=== PATIENT | male | born 1945 | race Caucasian/White ===

== ENCOUNTER 2020-12-20 18:42 | Emergency (ER) | payer OTHER ==
[2020-12-20] MEDS ORDERED: Lidocaine 1% 10 ML MDV INJECT ONE (20:03)
[2020-12-20] MEDS ORDERED: Acetaminophen 325 MG Tab PO ONE (20:03)
--- NOTE | 2020-12-20 20:09 | EDM.PDOC ---
ED HPI GENERAL MEDICAL PROBLEM - General Chief Complaint: General Stated Complaint: FISH HOOK IN FINGER Time Seen by Provider: 12/20/20 19:59 Source of Information: Reports: Patient, RN Notes Reviewed - History of Present Illness INITIAL COMMENTS - FREE TEXT/NARRATIVE: 75 yr old male got a wendy of a crankbait fish hook lodged in his L index finger about 90 minutes ago. Fairly deep. Last tetanus about 2 to 3 yrs ago. - Related Data Allergies Allergy/AdvReac Type Severity Reaction Status Date / Time No Known Allergies Allergy Verified 12/20/20 19:09 Home Meds: Home Meds Aspirin [Aspirin EC] 81 mg PO DAILY 12/20/20 [History] Carbidopa/Levodopa [Carbidopa-Levodopa 25-100] 1 tab PO BID 12/20/20 [History] Omeprazole 20 mg PO DAILY 12/20/20 [History] Simvastatin 20 mg PO DAILY 12/20/20 [History] amLODIPine Besylate [Amlodipine Besylate] 10 mg PO DAILY 12/20/20 [History] lisinopriL [Lisinopril] 40 mg PO DAILY 12/20/20 [History] Past Medical History HEENT History: Reports: Impaired Vision Cardiovascular History: Reports: High Cholesterol, Hypertension Gastrointestinal History: Reports: GERD Musculoskeletal History: Reports: Fracture Neurological History: Reports: Parkinson's - Past Surgical History GI Surgical History: Reports: Hernia Repair/Other Musculoskeletal Surgical History: Reports: Knee Replacement, Shoulder Surgery Social & Family History - Tobacco Use Tobacco Use Status *Q: Never Tobacco User - Caffeine Use Caffeine Use: Reports: Coffee - Recreational Drug Use Recreational Drug Use: No ED ROS GENERAL - Review of Systems Review Of Systems: See Below Constitutional: Reports: No Symptoms HEENT: Reports: No Symptoms Respiratory: Reports: No Symptoms Cardiovascular: Reports: No Symptoms GI/Abdominal: Reports: No Symptoms Musculoskeletal: Reports: Other (Browns in index finger of L hand) Neurological: Reports: No Symptoms ED EXAM, GENERAL - Physical Exam Exam: See Below General Appearance: Alert, No Apparent Distress Head: Atraumatic Neck: Supple Respiratory/Chest: No Respiratory Distress Extremities: Other (one hook of 3 treble hook of crankbait fairly deeply embedded in distal volar aspect index finger of L hand) Neurological: Alert, No Motor/Sensory Deficits Skin Exam: Warm, Dry, Normal Color Course - Vital Signs Last Recorded V/S: Last Vital Signs Temp 97.4 F 12/20/20 19:07 Pulse 52 L 12/20/20 19:07 Resp 16 12/20/20 19:07 BP 190/88 H 12/20/20 19:07 Pulse Ox 96 12/20/20 19:07 - Orders/Labs/Meds Meds: Medications Discontinued Medications Generic Name Dose Route Start Last Admin Trade Name Kylah PRN Reason Stop Dose Admin Acetaminophen 975 mg 12/20/20 20:03 12/20/20 21:18 Acetaminophen 325 Mg Tab PO 12/20/20 20:04 Not Given NOW ONE Lidocaine HCl 10 ml 12/20/20 20:03 12/20/20 21:18 Lidocaine 1% 10 Ml Mdv INJECT 12/20/20 20:04 10 ml ONETIME ONE Administration - Re-Assessments/Exams Free Text/Narrative Re-Assessment/Exam: 12/20/20 20:25 Procedure: Fish hook removal L index finger. Location distal volar pad of finger, moderately deep. Anesth. with 1% lidocaine. 2 other barbs of treble hook removed with manager wireless. Wendy advanced out of skin to where I could cut it off with manager wireless. Shank of hook than removed without difficulty. Departure - Departure Time of Disposition: 20:07 Disposition: Home, Self-Care 01 Condition: Fair Clinical Impression: Fish hook injury of hand Qualifiers: Encounter type: initial encounter Laterality: left Qualified Code(s): S69.92XA - Unspecified injury of left wrist, hand and finger(s), initial encounter - Discharge Information Instructions: Hand or Foot Foreign Body, Adult Referrals: PCP,Not In Area [Primary Care Provider] - Forms: ED Department Discharge Additional Instructions: Antibiotic ointment about 3 times daily area of injury. Protect with band aid for 3 to 5 days. Have rechecked any sign of infection. Sepsis Event Note (ED) - Evaluation Sepsis Screening Result: No Definite Risk
== END 2020-12-20 20:33 | disposition home or self-care (01) ==
LOC: JD.ED 18:42
DX: S60.451A Superficial foreign body of left index finger, initial encounter (principal); E78.00 Pure hypercholesterolemia, unspecified; I10 Essential (primary) hypertension; K21.9 Gastro-esophageal reflux disease without esophagitis; Z79.82 Long term (current) use of aspirin; Z79.899 Other long term (current) drug therapy; W45.8XXA Other foreign body or object entering through skin, initial encounter
CPT/HCPCS: 10120; 99282; 99283

== ENCOUNTER 2022-06-23 14:06 | Emergency (ER) | payer OTHER ==
[2022-06-23] MEDS ORDERED: cloNIDine 0.1 MG Tab PO ONE (14:36)
== END 2022-06-23 16:35 | disposition home or self-care (01) ==
LOC: JD.ED 14:06
DX: I10 Essential (primary) hypertension (principal); E78.00 Pure hypercholesterolemia, unspecified; K21.9 Gastro-esophageal reflux disease without esophagitis; M19.90 Unspecified osteoarthritis, unspecified site; Z79.82 Long term (current) use of aspirin; Z79.899 Other long term (current) drug therapy
CPT/HCPCS: 93005; 99284; A9270; 93010; 99283

== ENCOUNTER 2023-09-27 12:08 | Emergency (ER) | payer OTHER ==
[2023-09-27] MEDS: Ondansetron 4 MG/2 ML SDV IVPUSH ONE (12:30)
[2023-09-27] MEDS: HYDROmorphone 0.5 MG/0.5 ML Syringe IVPUSH ONE ×3 (12:32→14:21)
[2023-09-27] MEDS: Sodium Chloride 0.9% 10 ML Syringe FLUSH PRN (12:34)
[2023-09-27 12:41] LABS: BASOPHILS ABSOLUTE AUTO 0.1 K/mm3 (0.0-0.2); BASOPHILS PERCENT AUTO 0.5 % (0.0-1.0); EOSINOPHILS ABSOLUTE AUTO 0.3 K/mm3 (0.0-0.4); HEMATOCRIT 41.8 % (42.0-52.0); HEMOGLOBIN 13.4 gm/dl (14.0-18.0); IMMATURE GRAN ABSOLUTE AUTO 0.11 K/mm3 (0.00-0.05); IMMATURE GRAN PERCENT AUTO 0.8 % (0.0-0.4); LYMPHOCYTES PERCENT AUTO 23.4 % (24.0-44.0); MEAN CORPUSCULAR HEMOGLOBIN 28.8 pg (28.0-32.0); MEAN CORPUSCULAR HGB CONC 32.1 g/dl (32.0-36.0); MEAN CORPUSCULAR VOLUME 89.9 fl (83.0-99.0); MEAN PLATELET VOLUME 9.9 fl (9.4-12.4); MONOCYTES ABSOLUTE AUTO 1.2 K/mm3 (0.0-0.8); MONOCYTES PERCENT AUTO 9.1 % (0.0-8.0); NEUTROPHILS ABSOLUTE AUTO 8.4 K/mm3 (1.8-7.7); NEUTROPHILS PERCENT AUTO 64.2 % (41.0-71.0); PLATELET COUNT,PLT 340 K/mm3 (150-400); RED BLOOD CELL COUNT 4.65 M/mm3 (4.52-5.90); WHITE BLOOD CELL COUNT,WBC 13.01 K/mm3 (3.9-11.3)
[2023-09-27 12:49] LABS: A/G RATIO 1.3 (1-2); ALBUMIN 4.3 g/dl (3.4-5.0); BILIRUBIN TOTAL 0.6 mg/dL (0.2-1.0); BUN/CREATININE RATIO 13.8 (14-18); CALCIUM 9.5 mg/dL (8.5-10.1); CREATININE 1.6 mg/dL (0.7-1.3); EST CRCL DRUG DOSING (CG) 35.57 mL/min; PROTEIN TOTAL,TP 7.6 g/dl (6.4-8.2)
[2023-09-27] MEDS: Sodium Chloride 0.9% 1,000 ML IV STA (14:09)
== END 2023-09-27 14:55 ==
LOC: JD.ED 12:08
DX: S72.001A Fracture of unspecified part of neck of right femur, initial encounter for closed fracture (principal); K21.9 Gastro-esophageal reflux disease without esophagitis; Z79.899 Other long term (current) drug therapy; Z79.01 Long term (current) use of anticoagulants; Z86.16 Personal history of COVID-19; W19.XXXA Unspecified fall, initial encounter; Y93.01 Activity, walking, marching and hiking
CPT/HCPCS: 36415; 73502; 80053; 85025; 96361; 96374; 96375; 96376; 99285; J1170; J2405; J3490; J7030; 99284

== ENCOUNTER 2024-03-22 14:05 | Emergency (ER) | payer OTHER | END 2024-03-22 15:45 | disposition home or self-care (01) | LOC: SUPCPDRO 14:05 → JD.ED 14:05 | DX: M54.50 Low back pain, unspecified (principal); E78.00 Pure hypercholesterolemia, unspecified; I10 Essential (primary) hypertension; K21.9 Gastro-esophageal reflux disease without esophagitis; Z86.16 Personal history of COVID-19; Z90.49 Acquired absence of other specified parts of digestive tract; Z79.899 Other long term (current) drug therapy; Z79.82 Long term (current) use of aspirin | CPT/HCPCS: 72100; 72100-26; 99283 ==